=== PATIENT | male | born 1955 | race Caucasian/White ===

== ENCOUNTER 2017-02-06 01:52 | Inpatient (IN) | payer BC, OTHER ==
[~2017-02-06] VITALS: Ht 188 cm; Wt 88.5 kg
--- NOTE | 2017-02-06 02:45 | NUR ---
PRE-ADMISSION NOTE Pt is a 61 y/o male, seen at intake along with son in law, AAOx2, with SOB and anxiety noted at this time. Pt states, I am going to black out. Pt appears pale, is unable to respond to questions being asked, head is drifting down, eyes were rolling and unable to stay conscious during assessment. BP 112/83, pulse 57, resp 18, SpO2 98%, temp 98. Pt reports he is pre diabetic. Son in law reports pt has not eating for the past 3 days but has only consuming ETOH (wine). Pt speech is incoherent. Pt transferred to ER.
--- NOTE | 2017-02-06 03:20 | NUR ---
Pt cleared by ER to be admitted to [facility]. Pt is a 61 y/o male, seen at intake, AAOx4, no SOB with mild anxiety noted at this time. Discussed with patient the admission policies of the unit. Patient is coherent and able to respond to questions appropriately. Pt is ambulatory with steady gait. Vital signs taken and as follows: BP: 111/68, P: 60, R: 18, O2: 95%, T: 98, PA: 0. Pt verbalized understanding of instructions and teachings regarding disposal of narcotic and other controlled home medications, unit protocols such as taking of vital signs Q4H and handling and disposal of contraband. Will continue with admission upon pts arrival on the unit.
[2017-02-06 03:53] LABS: BILIRUBIN,TOTAL 0.4 mg/dL (0.2-1.0); CREATININE 1.9 mg/dL (0.6-1.3); MAGNESIUM 1.8 mg/dL (1.8-2.4); POTASSIUM 4.8 mmol/L (3.5-5.1); TOTAL PROTEIN, SERUM 7.2 g/dL (6.4-8.2)
[2017-02-06 03:55] LABS: *AMPHETAMINE, URINE NEGATIVE (NEGATIVE); *BARBITURATE, URINE NEGATIVE (NEGATIVE); *CANNABINOID, URINE NEGATIVE (NEGATIVE); *COCCAINE, URINE NEGATIVE (NEGATIVE); *OPIATE, URINE NEGATIVE (NEGATIVE); *PHENCYCLIDINE SCREEN,URINE NEGATIVE (NEGATIVE)
[2017-02-06 04:00] VITALS: BP_SYST 112; BP_SYST 138; BP_DIAS 83; BP_DIAS 86
--- NOTE | 2017-02-06 04:00 | NUR ---
ADMISSION NOTE Pt is a 61 y/o male admitted on 02/06/17 for ETOH dependence. Pt reports allergies to PCN and sulfa, denies history of seizures. Pt was able to provide UDS. Upon admission CIWA 8, BP: 138/86, P: 83, R: 18, O2: 96%, T: 98, PA: 0. Weight 195, height 62. Pt reports his primary care provider is Dr. Cormier in [place], pt is a former smoker, pt quit smoking 2002, denies being hospitalized within past 30 days. Pt is able to understand and respond to all questions pertaining to his hospitalization. Substance Abuse History is as follows: 1. Wine 750ml/daily, last intake of 375ml on 02/05/17, at this rate for the past 3 weeks. Pt reports he has relapsed about 3 weeks ago. Pt reports attempting to stay sober 1 month ago by taking prescribed Ativan 0.5mg every 2-3 days. Pt remained sober for 28 days, then relapsed about 3 weeks ago. Pt longest sober period was for 16 years from 2000October 2016. Pt reports he had gout surgery in October, in which he was prescribed Narcotics. Pt reports he took 3-4 pills a night. To stop taking the Narcotics he began drinking instead. Hence, pt relapsing about 3 weeks ago, as stated by pt. Treatment history: [facility] in 1998 for 3 days. Pt reports is father is due to alcoholism, 3 out of 4 of his daughters are in recovery, while his 4th daughter and abuse ETOH. PMH: Stroke 1997, HLP, Sleep apnea (pt does not use CPAP machine), Pleurisy 2012, Pneumonia Legionnaires disease 2012, GERD, Hereditary Kidney disease, enlarged prostate, gout, HTN, pre-diabetic, knee replacement and right ear cancer. Pt denies any hx of seizures. Upon assessment, pt is AAOx4, pt is mildly intoxicated, presents with anxiety, skin is flushed, and has mild chills, reports feeling hot/cold at the same time. Respirations even and unlabored. Denies SOB, chest pain, N/V/D. Bowel sounds active x 4, abdomen soft. PERRLA. Skin intact, no open wounds noted. Pt denies SI/HI. Educational information provided and left at bedside. Pt oriented to room and encouraged to notify staff with any concerns. Safety measures in place. Call light within reach, side rails up x 2, bed locked and in low position. Will continue to monitor.
--- NOTE | 2017-02-06 04:01 | NUR ---
PRN Administration CIWA 8 Pt presents with anxiety, skin flushed, reports chills, feeling hot/cold sensations, with headache. Ativan 1mg PRN administered. Safety measures in place. Will continue to monitor.
[2017-02-06 04:03] LABS: THYROID STIMULATING HORMONE 3.23 mIU/mL (0.358-3.740)
[2017-02-06 04:13] LABS: BASOPHILS # (AUTO) 0.1 K/uL (0.0-8.0); BASOPHILS % (AUTO) 0.6 % (0.0-2.0); EOSINOPHILS # (AUTO) 0.1 K/uL (0.0-0.7); EOSINOPHILS % (AUTO) 1.6 % (0.0-7.0); HEMOGLOBIN 16.8 G/DL (14.0-18.0); LYMPHOCYTES # (AUTO) 1.9 K/UL (0.8-4.8); LYMPHOCYTES % (AUTO) 22.3 % (20.5-51.5); MEAN CORPUSCULAR HEMOGLOBIN 27.4 UUG (27.0-31.0); MEAN CORPUSCULAR HGB CONC 33 g/dL (32.0-37.0); MEAN CORPUSCULAR VOLUME 83.1 FL (82.0-92.0); MONOCYTES # (AUTO) 0.5 K/UL (0.1-1.30); MONOCYTES % (AUTO) 5.6 % (0.0-11.0); NEUTROPHILS # (AUTO) 5.9 K/UL (1.8-8.9); NEUTROPHILS % (AUTO) 69.9 % (38.5-71.5); PLATELET COUNT (AUTO) 220 K/UL (150-450); RED BLOOD CELL COUNT(AUTO) 6.14 MIL/UL (4.7-6.1); WHITE BLOOD COUNT (AUTO) 8.5 K/UL (4.0-11.2)
--- NOTE | 2017-02-06 05:00 | NUR ---
PRN Reassessment CIWA 6
[2017-02-06] MEDS ORDERED: METO25TA6 PO (05:52)
[2017-02-06] MEDS ORDERED: ROSU5TAB PO (05:52)
[2017-02-06] MEDS ORDERED: PANT40TA4 PO (05:52)
[2017-02-06] MEDS ORDERED: LISI-607 PO (05:52)
[2017-02-06] MEDS ORDERED: FLUT15OI4 TP (05:52)
[2017-02-06] MEDS ORDERED: ASPI81TA31 PO (05:52)
[2017-02-06] MEDS ORDERED: [UNRECOGNIZED DRUG - OTHER] (06:11)
--- NOTE | 2017-02-06 07:00 | NUR ---
End of Shift Pt is a 61 year old male admitted for ETOH dependence. Pt reported consuming wine 750ml/daily for the past 2 weeks. Pt reports allergies to PCN and sulfa. PMH: Stroke 1997, HLP, Sleep apnea (pt does not use CPAP machine), Pleurisy 2012, Pneumonia Legionnaires disease 2012, GERD, Hereditary Kidney disease, enlarged prostate, gout, HTN, pre-diabetic, knee replacement and right ear cancer hx. Ativan 1mg PRN administered for CIWA 8, score decreased to CIWA 6. No other PRN medications administered during shift. VTE 5, SCD pumps at bed side. Pt slept for 1 hours, intake of 1100ml PO, voids x1 and stool x0. Safety measures in place, call light within reach, side rails up x2, bed locked and in low position. Endorsed to day shift nurse.
[2017-02-06 08:00] VITALS: BP 122/83
--- NOTE | 2017-02-06 08:00 | NUR ---
START OF SHIFT NOTE Received pt aox4. Patient reports feeling bad and c/o stomach and head pain. He was given PRN Ativan per night nurse. No taper ordered. Last CIWA 8 this am at 0800. He slept for 1 hour. TB test implanted to [facility]. VTE score 5 with pumps in room. Pt has a 20 g right hand IV with no discomfort or redness noted. Encouraged pt to increase Encouraged pt to increase fluid intake to facilitate detox. Will monitor closely and offer help.
--- NOTE | 2017-02-06 08:10 | NUR ---
PRN MEDICATIONS 1 MG ATIVAN GIVEN FOR CIWA 8. BENTYL GIVEN FOR ABDOMINAL CRAMPS 12/14 WILL REASSESS.
--- NOTE | 2017-02-06 09:10 | NUR ---
PRN REASSESSMENT PATIENT SLEEPING IN ROOM WITH RR EVEN AND UNLABORED. NO SIGNS OF DISCOMFORT OR DISTRESS. WILL MONITOR.
[2017-02-06 12:00] VITALS: BP 133/103
[2017-02-06 16:00] VITALS: BP 138/108
--- NOTE | 2017-02-06 18:29 | NUR ---
END OF SHIFT NOTE PT CONTINUED ON 5 DAY ATIVAN TAPER AND TOLERATED WELL. PRN ATIVAN AND BENTYL GIVEN AT BEGINNING OF SHIFT BEFORE TAPER STARTED FOR ELEVATED CIWA WITH EFFECTIVENESS. PT HAS RIGHT HAND IV 20 G WITH FLUIDS INFUSING. PT RESTED IN BED DURING SHIFT AND RESTED. LAST CIWA 5. ALL NEEDS MET. VITAL SIGNS STABLE. ALL SAFETY MEASURES IN PLACE. WILL ENDORSE TO NIGHT NURSE.
[2017-02-06 20:00] VITALS: BP 163/100
--- NOTE | 2017-02-06 20:00 | NUR ---
START OF SHIFT NOTE Received 61 y/o. A/Ox4. Admitted for ETOH dependence. On regular diet, FULL code, allergic to penicillin, and Sulfa. On 5 day Ativan taper. During the rounds at 1999H, px is on IVF NS peripherally inserted on right dorsal hand, running at 120ml/hr. Px complained of abdominal reflux pain, but no N/V. Encouraged px to increase fluid intake to facilitate detox. We'll monitor closely and offer help.
--- NOTE | 2017-02-06 20:28 | NUR ---
PRN Maalox suspension Px complained of heartburn, but no N/V. Maalox suspension 30 ml given PO as PRN med. We'll continue to monitor.
--- NOTE | 2017-02-06 21:00 | NUR ---
Peripheral IV access Px accidentally pulled his peripherally inserted IV access. To be reinserted. We'll continue to monitor.
--- NOTE | 2017-02-06 21:30 | NUR ---
Heartburn reassessed Px reassessed after an hour of Maalox suspension administration. Px verbalized "my heartburn is relieved". We'll continue to monitor.
--- NOTE | 2017-02-06 21:30 | NUR ---
CIWA reassessed CIWA 4 at 2130H. Less anxiety, no sweat observed, still with very mild visual hallucination. We'll continue to monitor.
--- NOTE | 2017-02-06 21:30 | NUR ---
IV access reinserted IV access reinserted aseptically on left dorsal hand, 22G, with good backflow, flushed with 10 NS. IVF NS continued, running 120 cc/hr. We'll continue to monitor.
[2017-02-07] VITALS: BP 153/93
--- NOTE | 2017-02-07 | NUR ---
CIWA deferred CIWA assessment deferred at 0000 due to the px is sleeping, to assess if the px is awake per doctor's order. We'll continue to monitor.
[2017-02-07 04:00] VITALS: BP 177/117
--- NOTE | 2017-02-07 04:13 | NUR ---
IVF discontinued Px's BP= 177/117, no H/A, no N/V, no blurring of vision reported. IVF NS temporarily discontinued. Clonidine 0.1mg 1 tab given PO as PRN med. We'll continue to monitor.
--- NOTE | 2017-02-07 05:03 | NUR ---
BP reassessment Px is sleeping, BP= 163/101, OH= 82. We'll continue to monitor.
--- NOTE | 2017-02-07 07:15 | NUR ---
End of Shift Notes 61 y/o male px. A/Ox4. Admitted for ETOH dependence. On regular diet, FULL code, allergic to penicillin, and Sulfa. On 5 day Ativan taper. Px is on IVF NS running at 120ml/hr. During the shift, Px complained of heartburn, Maalox suspension 30 ml given PO as PRN med, px was relieved after an hour. Encouraged px to increase fluid intake to facilitate detox. IV access was accidentally pulled out. IV reinserted peripherally aseptically at left dorsal hand 22G. Px's BP= 177/117, no H/A, no N/V, no blurring of vision reported @ 0400. IVF NS temporarily discontinued. Clonidine 0.1mg 1 tab given PO as PRN med. BP= 157/ 101 at 0600H. Oral intake of 900 ml, voided 1x, no BM. Slept for 7 hrs. We'll monitor closely.
[2017-02-07 07:42] LABS: CREATININE 1.3 mg/dL (0.6-1.3); MAGNESIUM 1.5 mg/dL (1.8-2.4); PHOSPHOROUS 3.2 mg/dL (2.5-4.9); POTASSIUM 4.8 mmol/L (3.5-5.1); URIC ACID 7.1 mg/dL (3.5-7.2)
[2017-02-07 08:00] VITALS: BP 188/117
--- NOTE | 2017-02-07 08:00 | NUR ---
START OF SHIFT NOTE Received pt aox4. Patient reports feeling bad today. He was given PRN Mylanta and Clonidine per night nurse. patient on Ativan taper. Last CIWA 6 this am at 0800. He slept for 7 hours. VTE score 5 with pumps in room. Pt has a 22 g left hand IV with no discomfort or redness noted. Encouraged pt to increase fluid intake to facilitate detox. Will monitor closely and offer help.
--- NOTE | 2017-02-07 08:10 | NUR ---
PRN MEDICATION BLOOD PRESSURE ELEVATED TO 188/117 HR 74. CLONIDINE GIVEN FOR INCREASE BLOOD PRESSURE. WILL ASSESS EFFECTIVENESS.
[2017-02-07 08:11] LABS: HEPATITIS B SURFACE AG Negative (Negative)
--- NOTE | 2017-02-07 09:10 | NUR ---
PRN REASSESSMENT BLOOD PRESSURE DECREASED TO 158/112. PT PRESENTS WITH NO S/S. WILL MONITOR
--- NOTE | 2017-02-07 10:20 | NUR ---
PRN ZOFRAN PRN Zofran administered for nausea, pt denies episodes of emesis. Primary nurse to reassess.
--- NOTE | 2017-02-07 11:15 | NUR ---
PRN REASSESSMENT PT REPORTS IMPROVEMENT IN NAUSEA.
[2017-02-07 12:00] VITALS: BP 158/101
[2017-02-07 16:50] VITALS: BP 170/120
--- NOTE | 2017-02-07 16:55 | NUR ---
PRN MEDICATION BP 170/120. PO HYDRALAZINE ADMINISTERED ORDERED. AWARE. WILL REASSESS
--- NOTE | 2017-02-07 17:55 | NUR ---
PRN REASSESSMENT BLOOD PRESSURE INCREASED TO 176/115. HR 85. NOTIFIED WAITING FOR NEW ORDERS. Addendum: 02/07/17 at 1821 by MARTIR MENJIVAR RN METOPROLOL 100 MG ORDERED AND ADMINISTERED. WILL ENDORSE TO NIGHT NURSE TO RECHECK BP AT 1920.
--- NOTE | 2017-02-07 18:28 | NUR ---
END OF SHIFT NOTE PT CONTINUED ON 5 DAY ATIVAN TAPER AND TOLERATED WELL. PRN CLONIDINE, ZOFRAN, HYDRALAZINE GIVEN DURING SHIFT. PT PRESENTED WITH HIGH BLOOD PRESSURE DURING SHIFT AND HAS BEEN GIVEN MEDICATIONS ORDERED BY MD. IV DISCONTINUED PER MD. PT ATTENDED GROUPS AND ACTIVITIES DURING SHIFT. LAST CIWA 6. ALL NEEDS MET ENDORSED TO ONCOMING SHIFT TO REASSESS BLOOD PRESSURE. ALL SAFETY MEASURES IN PLACE. WILL ENDORSE TO NIGHT NURSE.
[2017-02-07 20:00] VITALS: BP 160/100
--- NOTE | 2017-02-07 20:00 | NUR ---
Start of Shift Notes Received 61 y/o. A/Ox4. Admitted on 02/06/2017 for ETOH dependence. On regular diet, FULL code, allergic to penicillin, and Sulfa. On 5 day Ativan taper. During the rounds at 2000H, Px complained of left shoulder pain 8/10, and nausea. BP= 160/100 and KS= 74. We'll continue to monitor closely.
--- NOTE | 2017-02-07 20:36 | NUR ---
PRN Tylenol Px complained of left shoulder pain 12/14 due to gout. Naproxen 500mg 1 tab given PO as standing order and Tylenol 325 mg 2 tabs given PO as PRN med. We'll continue to monitor and assess after an hour.
--- NOTE | 2017-02-07 21:35 | NUR ---
Pain reassessment reassessment deferred due to the px is sleeping. BP= 146/63, TN=66. Respirations are even and unlabored at 18 cpm. We'll continue to monitor.
[2017-02-08] VITALS (9 sets, daily range): BP systolic 134–191; BP diastolic 87–122
--- NOTE | 2017-02-08 | NUR ---
Pain reassessment Left shoulder pain decreased from 8/10 to 4/10 as verbalized. We'll continue to monitor. CIWA is 4.
--- NOTE | 2017-02-08 00:31 | NUR ---
PRN Apresoline BP= 157/111, VA=66 at 0000H. Apresoline 50 mg 1 tab given PO as PRN med. BP to be reassess after an hour. We'll continue to monitor.
--- NOTE | 2017-02-08 01:41 | NUR ---
Reassessment of BP Px is sound asleep, BP= 145/96, AZ= 71. Respirations are even and unlabored at 18 cpm. We'll continue to monitor.
--- NOTE | 2017-02-08 04:00 | NUR ---
CIWA deferred Assessment for CIWA deferred due to the px is sleeping, to assess if the px is awake per doctor's order. We'll continue to monitor.
--- NOTE | 2017-02-08 07:03 | NUR ---
End of Shift Notes 61 y/o male, A/Ox4. Admitted on 02/06/2017 for ETOH dependence. On regular diet, FULL code, allergic to penicillin, and Sulfa. On 5 day Ativan taper. During the shift, Px complained of left shoulder pain 8/10 due to gout. Naproxen 500mg 1 tab given PO as standing order and Tylenol 325 mg 2 tabs given PO as PRN med. Left Shoulder pain decreased to 4/10. BP= 157/111, CT=66 at 0000H. Apresoline 50 mg 1 tab given PO as PRN med. Px's BP= 145/96, CT= 71 at 0141H. Oral intake of 1,500 ml, voided 2x, BM 1x. Slept for 9 hrs. Last CIWA 4. We'll continue to monitor closely.
--- NOTE | 2017-02-08 07:14 | NUR ---
Start of shift note SBAR report rcv'd. Pt was admitted for ETOH dependence. Pt is a full code, on a regular diet and allergic to sulfa and PCN. Pt has a PMhx of HTN, prediabetes, HLP, stroke in 1997, sleep apnea, pleurisy in 2012, pneumonia, GERD, kidney disease, enlarged prostate, gout, knee replacement and right ear cancer hx. Pt is on a 5 day ativan taper and tolerating well per report. Pt has no complaints at this time. Will continue to monitor pt. All needs addressed at this time.
--- NOTE | 2017-02-08 08:13 | NUR ---
PRN administration Pt c/o dyspepsia. Administered PRN mylanta per MD order. Will continue to monitor pt.
[2017-02-08 08:42] LABS: CREATININE 1.4 mg/dL (0.6-1.3); MAGNESIUM 1.6 mg/dL (1.8-2.4); PHOSPHOROUS 3.7 mg/dL (2.5-4.9); POTASSIUM 4.5 mmol/L (3.5-5.1)
[2017-02-08 08:57] LABS: BASOPHILS # (AUTO) 0.1 K/uL (0.0-8.0); BASOPHILS % (AUTO) 0.9 % (0.0-2.0); EOSINOPHILS # (AUTO) 0.6 K/uL (0.0-0.7); EOSINOPHILS % (AUTO) 9.5 % (0.0-7.0); HEMATOCRIT 44.6 % (36.7-47.1); HEMOGLOBIN 15.3 g/dL (12.5-16.3); LYMPHOCYTES # (AUTO) 1.6 K/uL (20.0-40.0); LYMPHOCYTES % (AUTO) 27.9 % (20.5-51.5); MEAN CORPUSCULAR HEMOGLOBIN 28.1 uug (23.8-33.4); MEAN CORPUSCULAR HGB CONC 34 g/dL (32.5-36.3); MONOCYTES # (AUTO) 0.6 K/uL (2.0-10.0); NEUTROPHILS # (AUTO) 2.9 K/uL (1.8-8.9); NEUTROPHILS % (AUTO) 50.7 % (38.5-71.5); RED BLOOD CELL COUNT(AUTO) 5.44 MIL/uL (4.06-5.63)
[2017-02-08 09:10] LABS: WHITE BLOOD COUNT (AUTO) 5.8 K/uL (3.6-10.2)
[2017-02-08 09:11] LABS: PLATELET COUNT (AUTO) 127 K/uL (152-348)
--- NOTE | 2017-02-08 09:43 | NUR ---
PRN administration Pt noted with a BP of 191/122. PRN hydralazine administered. Dr Onofre notified. Will continue to monitor pt.
--- NOTE | 2017-02-08 10:43 | NUR ---
Reassessment Pt BP is 168/114. Dr Onofre placed orders for one time PO meds. Will administer as ordered.
--- NOTE | 2017-02-08 12:15 | NUR ---
Reassessment Pt BP is 170/112, HR 71. Dr Onofre notified. Will place orders.
--- NOTE | 2017-02-08 13:45 | NUR ---
Activity Group Note: Client did not attend.
--- NOTE | 2017-02-08 14:01 | NUR ---
Onetime order reassessment Pt is sleeping, rested his BP to be checked again in 30 mins.
--- NOTE | 2017-02-08 14:30 | NUR ---
Reassessment Pt BP is 148/97, pt states that he is feeling "better". Administered scheduled medications. Will continue to monitor pt.
--- NOTE | 2017-02-08 19:05 | NUR ---
End of shift note Pt was admitted for ETOH dependence. Pt has a PMhx of HTN, prediabetes, HLP, stroke in 1997, sleep apnea, pleurisy in 2012, pneumonia, GERD, kidney disease, enlarged prostate, gout, knee replacement and right ear cancer hx. Pt is a full code, on a regular diet and allergic to sulfa and PCN. Pt is on a 5 day ativan taper and tolerating well per report. Pt required multiple medications throughout the shift to manage his elevated blood pressure with success. Most recent BP at 1600 was 140/99Pt has no complaints at this time. Will continue to monitor pt. All needs addressed at this time. Pt had a CIWA of 4 at 1600. Pt ate no breakfast, 75% of lunch, 100% of dinner, drank 1250 ml of fluids, had 4 voids and 1 BM. Will endorse SBAR to coming shift.
--- NOTE | 2017-02-08 20:00 | NUR ---
START OF SHIFT NOTE RECEIVED REPORT FROM DAY SHIFT NURSE. PATIENT IS A 61 YEAR OLD MALE , ADMITTED FOR ETOH DEPENDENCE. CONTINUE ON ATIVAN TAPER, TOLERATED WELL, NO ADVERSE REACTION. PATIENT COMPLIANT WITH MEDICATIONS AND TREATMENT PLAN. PER DAY SHIFT NURSE. PATIENT WAS HYPERTENSIVE DURING THE DAY. PATIENT WAS GIVEN PRN HYDRALAZINE , ONE TIME NORVASC , CATAPRES AND HYDROCHLOROTHIAZIDE. CONTINUE TO ENCOURAGE FLUIDS. LAST CIWA 4. LAST BP- 140/99. SCD ON BEDSIDE. RECEIVED PATIENT ALERT AND ORIENTED X 4. PATIENT WATCHING TV. PATIENT STATES HES ANXIOUS , NO SWEATING, NO N/V BUT STATES HES TIRED. DENIES ANY PAIN. PER PATIENT HE ATTENDED GROUPS, APPETITE IS GOOD AND HAD BM TODAY. SAFETY MEASURES IN PLACE. WILL CONTINUE TO MONITOR.
--- NOTE | 2017-02-08 21:00 | NUR ---
NAPROSYN REFUSED PATIENT REFUSED TO TAKE NAPROSYN, EXPLAINED RISKS/BENEFITS. PER PATIENT THIS MEDICATION GIVES HIM STOMACH ACHE. PATIENT EDUCATE ON MEDICATION BUT STILL REFUSED. WILL CONTINUE TO MONITOR
--- NOTE | 2017-02-08 21:00 | NUR ---
CLONIDINE HELD PATIENT CLONIDINE HELD DUE TO HR 66. HOLD ORDER IF BP<100/70 AND HR <70.
[2017-02-09] VITALS (9 sets, daily range): BP systolic 133–171; BP diastolic 88–116
--- NOTE | 2017-02-09 | NUR ---
CIWA DEFERRED PATIENT SLEEPING . CIWA DEFERRED. RESPIRATION EVEN AND UNLABORED. SAFETY MEASURES IN PLACE. CALL LIGHT IN REACH. WILL CONTINUE TO MONITOR.
--- NOTE | 2017-02-09 04:00 | NUR ---
CIWA DEFERRED PATIENT SLEEPING . CIWA DEFERRED. RESPIRATION EVEN AND UNLABORED. SAFETY MEASURES IN PLACE. CALL LIGHT IN REACH. WILL CONTINUE TO MONITOR.
--- NOTE | 2017-02-09 07:09 | NUR ---
Start of shift note SBAR report rcv'd. Pt was admitted for ETOH dependence. Pt has a PMHx of HTN, prediabetes, HLP, stroke, sleep apnea, pleurisy, pneumonia, GERD, heredity kidney disease, enlarged prostate, gout affecting his left arm, knee replacement, and right ear cancer. Pt is on an ativan taper. Pt has no complaints at this time. Will continue to monitor pt. All needs addressed at this time.
--- NOTE | 2017-02-09 07:18 | NUR ---
END OF SHIFT NOTE PATIENT IS A 61 YEAR OLD MALE ADMITTED FOR ETOH DEPENDENCE. CONTINUE ON ATIVAN TAPER, TOLERATED WELL, NO ADVERSE REACTION. PATIENT COMPLIANT WITH MEDICATIONS AND TREATMENT PLAN. PATIENT'S BLOOD PRESSURE STABLE. LATEST BP 138/88. CONTINUE TO ENCOURAGE FLUIDS. 2100 CLONIDINE WAS HELD DUE TO HR 66 AND PATIENT REFUSED NAPROSYN, EXPLAINED RISKS/BENEFITS BUT STILL REFUSED PER PATIENT HE GET'S STOMACH ACHE TAKING IT. EDUCATE PATIENT ABOUT NAPROSYN BUT STILL REFUSED. SCD ON BEDSIDE. PATIENT IN HIS ROOM MOST OF THE SHIFT. PATIENT DID NOT REQUIRE ANY PRN MEDICATION . SAFETY MEASURES IN PLACE. WILL CONTINUE TO MONITOR. SLEPT 8 HOURS. FLUID INTAKE 1,500 ML. VOIDED X 2 . NO BM. LAST CIWA 5.
--- NOTE | 2017-02-09 08:21 | NUR ---
Medication refusal Pt refused to take clonidine and naproxen, states "they make me sick". Will continue to monitor pt.
[2017-02-09 08:57] LABS: CREATININE 1.4 mg/dL (0.6-1.3); MAGNESIUM 1.7 mg/dL (1.8-2.4); PHOSPHOROUS 3.9 mg/dL (2.5-4.9); POTASSIUM 4.4 mmol/L (3.5-5.1)
--- NOTE | 2017-02-09 12:50 | NUR ---
PRN administration Pt noted to have a BP of 171/116 during routine VS. Administered PRN hydralizine per MD order. Dr Onofre notified. Will continue to monitor pt.
--- NOTE | 2017-02-09 13:50 | NUR ---
Reassessment Pt BP reassessed, 146/95. Will continue to monitor pt. Medication was effective.
--- NOTE | 2017-02-09 16:45 | NUR ---
MD communication Pt noted to have a BP of 163/110, HR 78. Dr Onofre notified and will place orders.
--- NOTE | 2017-02-09 17:15 | NUR ---
MD communication Pt has a CIWA of 10, states that he doesn't feel good. Notified Dr Onofre. Will continue to monitor pt.
--- NOTE | 2017-02-09 18:53 | NUR ---
Reassessment of ativan and hydralazine Pt CIWA is now 3, down from 10 and BP is 159/102, down from 166/112. However pt was ambulating around the unit prior to checking BP, and pt is anxious to go to group therapy. Pt states that he feels "ok" and denies any dizziness/headaches/blurred vision. Pt scheduled to have BP rechecked in an hour with further medications for his BP to be administered. All needs addressed at this time. Will continue to monitor pt.
--- NOTE | 2017-02-09 19:04 | NUR ---
End of shift note Pt was admitted for ETOH dependence. Pt has an allergy to PCN and sulfa. Pt has a PMHx of HTN, prediabetes, HLP, stroke, sleep apnea, pleurisy, pneumonia, GERD, heredity kidney disease, enlarged prostate, gout affecting his left arm, knee replacement, and right ear cancer. Pt is on a custom ativan taper and required one PRN dose of ativan d/t his s/s of withdrawal. Pt required multiple onetime and PRN medications for his elevated BP with some effectiveness. Pt has no complaints at this time. Will continue to monitor pt. Will endorse SBAR to oncoming shift.
--- NOTE | 2017-02-09 19:10 | NUR ---
Start of shift note Received report from day shift nurse. Pt is a 61 yo male, A+Ox4, presenting to [facility] for ETOH dependence. Pt has Allergies to PCN, and Sulfa, is on Full code status, and on 2gm sodium diet. Pt is on Fall and Seizure precautions. Pt has HX of HTN, Pre diabetic, Stroke, sleep apnea, Pleurisy, PNA legionnaires, GERD, hereditary kidney disease, enlarged prostate, gout, knee replacement, and right ear cancer. Pt is on 5 day Ativan taper, tolerated well. No s/s of distress noted at this time. Respirations even and unlabored. Will continue to monitor.
[2017-02-10] VITALS (7 sets, daily range): BP systolic 125–168; BP diastolic 75–111
--- NOTE | 2017-02-10 06:59 | NUR ---
End of shift note Pt is a 61 yo male, A+Ox4, presenting to [facility] for ETOH dependence. Pt has Allergies to PCN, and Sulfa, is on Full code status, and on 2gm sodium diet. Pt is on Fall and Seizure precautions. Pt has HX of HTN, Pre diabetic, Stroke, sleep apnea, Pleurisy, PNA legionnaires, GERD, hereditary kidney disease, enlarged prostate, gout, knee replacement, and right ear cancer. Pt is on 5 day Ativan taper, tolerated well. Pt slept for a total of 9 HRS. Last CIWA: 1 @0400. No s/s of distress noted at this time. Respirations even and unlabored. Will endorse to day shift nurse.
--- NOTE | 2017-02-10 07:30 | NUR ---
START OF SHIFT Pt is a 61 yr old male, AA&Ox4. Pt was admitted on 02/06/17 for ETOH Dependence and is on 5 day Ativan taper as ordered. Pt is full code, 2gm sodium diet and allergies to PCN and Sulfa. Received report from reception nurse. No PRN's were given during the night. Pt slept for 9hrs. Last CIWA score was 1 at 0400. Pt is currently c/o mild headache. Facial grimacing is observed. Skin is intact, warm and dry to touch. No tremor seen or felt. Encouraged pt to drink plenty of fluids for hydration. Pt denies any n/v. Safety precautions observed. Bed kept in low position and locked with side rails up x2. DVT pumps are place at foot of the bed. Call light is within reach. Will continue to monitor.
--- NOTE | 2017-02-10 08:30 | NUR ---
PRN GIVEN Pt is c/o headache. Tylenol 650mg PO PRN was given as ordered. Encouraged increase fluid intake. Will continue to monitor.
--- NOTE | 2017-02-10 09:30 | NUR ---
PRN RE-ASSESSMENT Tylenol PRN was mildly effective. Pt continues to c/o headache but is able to bre pain level. Encouraged increase fluid intake. Will continue to monitor.
[2017-02-10] MEDS ORDERED: AMLO10TA2 PO (11:57)
[2017-02-10] MEDS ORDERED: ROSU5TAB PO (11:57)
[2017-02-10] MEDS ORDERED: NAPR500T3 PO (11:58)
[2017-02-10] MEDS ORDERED: METO100T7 PO (11:58)
[2017-02-10] MEDS ORDERED: HYDR25TA86 PO (11:58)
[2017-02-10] MEDS ORDERED: HYDR12.517 PO ×2 (11:58→13:02)
[2017-02-10] MEDS ORDERED: DIPH50CA37 PO (11:58)
[2017-02-10] MEDS ORDERED: FAMO20TA8 PO (11:58)
[2017-02-10] MEDS ORDERED: EZET10TA13 PO (11:58)
[2017-02-10] MEDS ORDERED: LISI-603 PO (11:58)
[2017-02-10] MEDS ORDERED: HYDR50TA68 PO (13:02)
--- NOTE | 2017-02-10 18:45 | NUR ---
END OF SHIFT Pt is a 61 yr old male, AA&Ox4. Pt was admitted on 02/06/17 for ETOH Dependence and is on 5 day Ativan taper as ordered. Pt is full code, 2gm sodium diet and allergies to PCN and Sulfa. Pt has been cooperative with medication regimen and plan of care. Pt was observed attending group sessions. Last CIWA score was 2 at 1600. Pt is to be discharged tomorrow on 02/11/17 to [facility]. Tylenol PRN was given at 0830 for headache. Medication was effective. Pt denies any anxiety or agitation. Skin is intact, warm and dry to touch. No tremor seen or felt. Pt denies any n/v. Encouraged pt to drink plenty of fluids for hydration. Safety precautions observed. Call light is within reach.
--- NOTE | 2017-02-10 20:00 | NUR ---
Start of Shift Pt is a 61 year old male admitted for ETOH dependence, placed on 5 Ativan taper, completed. Pt reported consuming Wine 750ml/daily. PMH: Pt reported consuming wine 750ml/daily for the past 2 weeks. Pt reports allergies to PCN and sulfa. PMH: Stroke 1997, HLP, Sleep apnea (pt does not use CPAP machine), Pleurisy 2012, Pneumonia Legionnaires disease 2012, GERD, Hereditary Kidney disease, enlarged prostate, gout, HTN, pre-diabetic, knee replacement and right ear cancer hx. Pt reports allergies to PCN and Sulfa, fall/seizure precuations, 2 gram NA diet and full code. Upon assessment, pt presents with mild anxiety, reports mild body aches, respirations even/unlabored, skin flushed, denies SOB/chest pain, denies n/v/d, medications due. Safety measures in place, call light within reach, side rails up x2, bed locked and in low position. Will continue to monitor.
--- NOTE | 2017-02-10 20:24 | NUR ---
PRN Administration Pt reports feeling anxiety, requests relief. Vistaril 25mg PRN administered. Safety measures in place. Will continue to monitor.
--- NOTE | 2017-02-10 21:24 | NUR ---
PRN Reassessment/Administration Upon reassessment, pt reports less anxious. Pt reports headache, rated 5-6/10. Motrin 600mg PRN administered. Safety measures in place. Will continue to monitor.
--- NOTE | 2017-02-10 22:24 | NUR ---
PRN Reassessment Pt reports relief of headache. Motrin effective. Safety measures in place, needs met. will continue to monitor.
[2017-02-11] VITALS: BP 129/95
--- NOTE | 2017-02-11 | NUR ---
Vital Signs BP 129/95, pulse 79, resp 16, SpO2 95% room air, temp 98.0, no pain CIWA deferred due to pt sleeping, to assess while pt is awake as ordered. Safety measures in place. will continue to monitor.
[2017-02-11 04:00] VITALS: BP 120/72
--- NOTE | 2017-02-11 04:00 | NUR ---
Vital Signs BP 120/72, pulse 59, resp 17, SpO2 96% room air, temp 98.0, no pain CIWA deferred due to pt sleeping, to assess while pt is awake as ordered. Safety measures in place. will continue to monitor.
--- NOTE | 2017-02-11 07:00 | NUR ---
End of Shift Pt is a 61 year old male admitted for ETOH dependence, placed on 5 Ativan taper, completed. Pt reported consuming Wine 750ml/daily. PMH: Pt reported consuming wine 750ml/daily for the past 2 weeks. PMH: Stroke 1997, HLP, Sleep apnea (pt does not use CPAP machine), Pleurisy 2012, Pneumonia Legionnaires disease 2012, GERD, Hereditary Kidney disease, enlarged prostate, gout, HTN, pre-diabetic, knee replacement and right ear cancer hx. Pt reports allergies to PCN and Sulfa, fall/seizure precautions, 2 gram NA diet and full code. During shift, pt presented with mild anxiety, reported mild body aches - scheduled medications administered along with Vistaril 25mg PRN for anxiety and Motrin 600mg PRN for headache, effective. Latest CIWA 1. Pt is scheduled for discharge tomorrow, Pt slept for 8 hours, intake of 946 ml PO, voids x1 and stool x0. Safety measures in place, call light within reach, side rails up x2, bed locked and in low position. Endorsed to day shift nurse.
--- NOTE | 2017-02-11 07:30 | NUR ---
start of shift note: received pt from shift supervisor melting nurse, pt is in stable condition, no s/s of pain or discomfort, pt is awake and ready to discharge. pts last ciwa 1 and slept for 8 hrs. will assist pt in discharging and will continue to monitor pt for any changes. and continue to monitor pt for any changes
[2017-02-11 08:57] VITALS: BP 154/100
--- NOTE | 2017-02-11 09:00 | NUR ---
PRN administration: pt verbalized he feels as if he is withdrawing still. he verbalized he feels weak and dry heaving. pt verbalized maybe he's just anxious. Vistaril 25 mg was administered. will re-assess effectiveness of medication
--- NOTE | 2017-02-11 10:00 | NUR ---
discharge note: pt verbalized he felt better, and verbalized he is ready to discharge and that what he felt was a panic attack. pt teaching was administered and pt verbalized understanding. pts V/S WNL. all personal belongings were returned. pt will be transferred to [facility] via private car
== END 2017-02-11 10:00 | disposition other institution (70) | DRG 895 ==
LOC: SRC 01:52
PROVIDERS: ADMIT Internal Medicine; ATTEND Internal Medicine
PROC: HZ2ZZZZ Detoxification Services for Substance Abuse Treatment (ICD-10-PCS; principal; 2017-02-06)
PROC: HZ41ZZZ Group Counseling for Substance Abuse Treatment, Behavioral (ICD-10-PCS; 2017-02-07)
PROC: HZ31ZZZ Individual Counseling for Substance Abuse Treatment, Behavioral (ICD-10-PCS; 2017-02-08)
DX: F10.230 Alcohol dependence with withdrawal, uncomplicated (principal); N17.9 Acute kidney failure, unspecified; K70.10 Alcoholic hepatitis without ascites; E83.42 Hypomagnesemia; Y90.7 Blood alcohol level of 200-239 mg/100 ml; Z86.73 Personal history of transient ischemic attack (TIA), and cerebral infarction without residual deficits; N40.0 Benign prostatic hyperplasia without lower urinary tract symptoms; Z84.1 Family history of disorders of kidney and ureter; Z79.82 Long term (current) use of aspirin; M10.9 Gout, unspecified; E78.2 Mixed hyperlipidemia; Z91.89 Other specified personal risk factors, not elsewhere classified; I12.9 Hypertensive chronic kidney disease with stage 1 through stage 4 chronic kidney disease, or unspecified chronic kidney disease; N18.9 Chronic kidney disease, unspecified; R73.01 Impaired fasting glucose; E86.9 Volume depletion, unspecified
CPT/HCPCS: 36415; 70030-TC; 80307; 82043; 82570; 83690; 83735; 84100; 84443; 84550; 85025; 86580; 86592; 86705; 86803; 87340; 87806; A4663; G0480; J7030; Q0162

== ENCOUNTER 2017-02-06 02:10 | Emergency (ER) | payer BC, MEDICAID ==
[~2017-02-06] VITALS: Ht 188 cm; Wt 90.7 kg
--- NOTE | 2017-02-06 02:15 | NUR ---
Patient BIB [facility] staff c/o weakness. Patient and [facility] staff state that during the admission process patient became weak and diaphoretic. Patient states that he has not eaten a meal in over a week and has been drinking alcohol heavily. However, patient states that he does not have any symptoms at this time and felt better a moment after feeling his initial weakness. Patient wishes to continue admission to [facility] at this time. To room 4A.
--- NOTE | 2017-02-06 02:18 | NUR ---
ERMD at bedside for MSE.
--- NOTE | 2017-02-06 02:34 | NUR ---
[facility] in [facility] cond[facility]. Written and verbal after care instructions given. Patient verbalizes understanding of instructions.
[2017-02-06] MEDS ORDERED: LISI-607 PO (05:52)
[2017-02-06] MEDS ORDERED: FLUT15OI4 TP (05:52)
[2017-02-06] MEDS ORDERED: PANT40TA4 PO (05:52)
[2017-02-06] MEDS ORDERED: ROSU5TAB PO (05:52)
[2017-02-06] MEDS ORDERED: METO25TA6 PO (05:52)
[2017-02-06] MEDS ORDERED: ASPI81TA31 PO (05:52)
[2017-02-06] MEDS ORDERED: [UNRECOGNIZED DRUG - OTHER] (06:11)
[2017-02-10] MEDS ORDERED: ROSU5TAB PO (11:57)
[2017-02-10] MEDS ORDERED: AMLO10TA2 PO (11:57)
[2017-02-10] MEDS ORDERED: EZET10TA13 PO (11:58)
[2017-02-10] MEDS ORDERED: FAMO20TA8 PO (11:58)
[2017-02-10] MEDS ORDERED: DIPH50CA37 PO (11:58)
[2017-02-10] MEDS ORDERED: NAPR500T3 PO (11:58)
[2017-02-10] MEDS ORDERED: LISI-603 PO (11:58)
[2017-02-10] MEDS ORDERED: METO100T7 PO (11:58)
[2017-02-10] MEDS ORDERED: HYDR12.517 PO ×2 (11:58→13:02)
[2017-02-10] MEDS ORDERED: HYDR25TA86 PO (11:58)
[2017-02-10] MEDS ORDERED: HYDR50TA68 PO (13:02)
== END 2017-02-06 02:37 | disposition home or self-care (01) ==
LOC: ER 02:14
DX: Z00.8 Encounter for other general examination (principal); Z88.0 Allergy status to penicillin
CPT/HCPCS: 93005; A4663